=== PATIENT | male | born 1955 | race Caucasian/White ===

== ENCOUNTER 2017-08-10 14:21 | Emergency (ER) | payer MEDICAID | END 2017-08-10 14:45 | disposition left against medical advice (07) | LOC: ER 14:21 | DX: Z53.20 Procedure and treatment not carried out because of patient's decision for unspecified reasons (principal) ==

== ENCOUNTER 2017-08-10 14:22 | Emergency (ER) | payer MEDICAID ==
[2017-08-10] MEDS ORDERED: MORPHINE SULFATE 5 MG/ML PFS IVP ONE ×2 (14:25→16:35)
[2017-08-10] MEDS ORDERED: ONDANSETRON HCL IV 4 MG/2 ML VIAL IVP ONE (14:25)
[2017-08-10] MEDS ORDERED: 0.9 % SODIUM CHLORIDE 1,000 ML BAG IV ONE (14:25)
--- NOTE | 2017-08-10 14:31 | Emergency Department Record ---
History of Present Illness - General Chief complaint: Flank Pain Stated complaint: RIGHT FLANK PAIN Time Seen by Provider: 08/10/17 14:25 Source: Patient, Family Mode of Arrival: Ambulatory Limitations: No limitations - History of Present Illness Initial comments: 62 yo male presents with right sided pain that has been on and off for several days. The pain is sharp. No injury. No changes in urination, bowel movements , or appetite. He denies any trauma. The pain initially would come and go but today it is constant. No rash. No fevers. No history of renal stones. No history of hip surgery. He does have arthritis. Non smoker. His PCP is Dr Lemus. The pain is worse with certain positions. No leg radiation but it does radiate from the back around to the front near the hip area. MD Complaint: Other (Right flank pain) -: Days(s) Location: Right flank Radiation: Other (right hip) Quality: Aching Consistency: Constant Improves with: Rest Worsens with: Movement Reports: Denies other symptoms - Related Data Previous Rx's Medication Instructions Recorded Diazepam [Valium] 5 mg PO Q8H #15 tab 08/10/17 Hydrocodone/Acetaminophen [Anderson 1 each PO Q6H #16 tablet 08/10/17 5-325 Tablet] Methylprednisolone [Medrol Dose 0 mg PO UD #1 tab.ds.pk 08/10/17 Pack] Allergies Allergy/AdvReac Type Severity Reaction Status Date / Time Sulfa (Sulfonamide Allergy Unverified 08/10/17 14:00 Antibiotics) adhesive tape AdvReac RASH Unverified 08/10/17 14:00 Review of Systems Constitutional: Denies: Chills, Fever, Malaise, Weakness Eyes: Denies: Eye discharge ENT: Denies: Congestion, Throat pain Respiratory: Denies: Cough, Dyspnea, Hemoptysis, Stridor, Wheezes Cardiovascular: Denies: Chest pain, Palpitations, Syncope Endocrine: Denies: Fatigue Gastrointestinal: Reports: Abdominal pain. Denies: Diarrhea, Nausea, Vomiting Genitourinary: Denies: Dysuria, Frequency, Hematuria, Testicular pain Musculoskeletal: Reports: Back pain. Denies: Arthralgia Skin: Denies: Bruising, Change in color, Rash Neurological: Denies: Headache, Numbness, Weakness Psychiatric: Denies: Anxiety Hematological/Lymphatic: Denies: Easy bleeding, Easy bruising Physical Exam - General General Appearance: Alert, Oriented x3, Cooperative, No acute distress Limitations: No limitations - Head Head exam: Normal inspection - Eye Eye exam: Normal appearance. negative: Scleral icterus - ENT ENT exam: Normal exam, Mucous membranes moist, Normal orophraynx Ear exam: Normal external inspection Nasal Exam: Normal inspection Mouth exam: Normal external inspection Teeth exam: Normal inspection Throat exam: Normal inspection - Neck Neck exam: Normal inspection, Full ROM. negative: Tenderness - Respiratory Respiratory exam: Normal lung sounds bilaterally. negative: Respiratory distress - Cardiovascular Cardiovascular Exam: Regular rate, Normal rhythm, Normal heart sounds - GI/Abdominal GI/Abdominal exam: Soft. negative: Distended, Guarding, Rebound, Rigid, Tenderness - Rectal Rectal exam: Deferred - exam: Deferred - Extremities Extremities exam: Normal inspection, Full ROM, Normal capillary refill, Other ( Right hip has full ROM without hip pain, he does have some right flank pain with palpation). negative: Calf tenderness, Pedal edema, Tenderness - Back Back exam: Reports: Normal inspection, CVA tenderness (R), Paraspinal tenderness - Neurological Neurological exam: Alert, Oriented X3, Reflexes normal - Psychiatric Psychiatric exam: Normal affect, Normal mood - Skin Skin exam: Dry, Intact, Normal color, Warm Course - Reevaluation(s) Reevaluation #1: 08/10/17 15:10 The CBC was reviewed No acute changes The CMP was reviewed. CR is 1.3. GFR is 58 08/10/17 15:10 The patient is much improved after the pain medication 08/10/17 15:37 On recheck the pain is greatly improved. He is very comfortable. Declined additionally pain medication at this time. 08/10/17 15:39 The UA was reviewed and was negative The CT scan is negative for acute process. No stones 08/10/17 16:36 08/10/17 17:22 The pain is well controlled at this time With his negative work up and examination at this time this is likely musculo skeletal We discussed the results including labs, UA and CT We discussed home care and follow up if the pain returns I SW Dr Lemus regarding the ED visit. The patient can follow up in the office for a recheck if not improving 08/10/17 18:05 Medical Decision Making - Lab Data Result diagrams: 08/10/17 14:30 08/10/17 14:30 Disposition Disposition: Discharge Clinical Impression: Right low back pain Qualifiers: Chronicity: acute Sciatica presence: without sciatica Qualified Code(s): M54.5 - Low back pain Disposition: Home, Self-Care Condition: (1) Good Instructions: Flank Pain (ED) Additional Instructions: Call your doctor for close follow up of this ER visit to review the test results. Return if you pain is uncontrolled, news symptoms or concerns. Prescriptions: Diazepam [Valium] 5 mg PO Q8H #15 tab Hydrocodone/Acetaminophen [Anderson 5-325 Tablet] 1 each PO Q6H #16 tablet Methylprednisolone [Medrol Dose Pack] 0 mg PO UD #1 tab.ds.pk Forms: Patient Portal Access Quality - Quality Measures Quality Measures: N/A - Blood Pressure Screening Does Patient Have Any of the Following: Active Dx of HTN Blood Pressure Classification: Pre-Hypertensive BP Reading Systolic Measurement: 122 Diastolic Measurement: 72 Screening for High Blood Pressure: Patient Exclusion, Hx of HTN [G9744] Pre-Hypertensive Follow-up Interventions: Referral to alternative/primary care provider.
[2017-08-10 14:38] LABS: BASO % 1.1 % (0-6); GRAN % 66.1 % (47-80); HEMATOCRIT 45.2 % (42.0-52.0); LYMPH % 19.4 % (16-45); MEAN CELL VOLUME 85.8 fl (81-97); MEAN CORPUSCULAR HEMOGLOBIN 28.5 pg (27-33); MEAN CORPUSCULAR HGB CONC 33.2 g/dl (32-36); MEAN PLATELET VOLUME 9.7 fl (7.4-10.4); MONO % 9.4 % (0-9); PLATELET COUNT 317 K/uL (130-400); RED BLOOD COUNT 5.27 M/uL (4.40-5.70); RED CELL DISTRIBUTION WIDTH 14.1 % (11.5-14.5); WHITE BLOOD COUNT W/O DIFF 4.7 K/uL (4.2-12.2)
[2017-08-10 14:48] LABS: BILIRUBIN,TOTAL 0.4 mg/dL (0.2-1.0); CREATININE 1.3 mg/dL (0.7-1.2)
[2017-08-10 14:49] LABS: TOTAL PROTEIN 7.4 g/dL (6.6-8.7)
[2017-08-10 14:54] LABS: ALB/GLOB RATIO 1.7 (1.1-1.8); ALBUMIN 4.7 g/dL (4.0-5.0)
[2017-08-10 15:20] LABS: URINE APPEARANCE CLEAR; URINE BILIRUBIN NEGATIVE (NEGATIVE); URINE BLOOD NEGATIVE (NEGATIVE); URINE COLOR YELLOW; URINE GLUCOSE (UA) NEGATIVE (NEGATIVE); URINE KETONE NEGATIVE (NEGATIVE); URINE LEUKOCYTE ESTERASE NEGATIVE (NEGATIVE); URINE NITRITE NEGATIVE (NEGATIVE); URINE PROTEIN NEGATIVE (NEGATIVE); URINE UROBILINOGEN 0.2 E.U./dL (0.20 - 1.00)
[2017-08-10] MEDS ORDERED: ACETAMINOPHEN 1,000 MG/100 ML BTL IVPB ONE (16:35)
[2017-08-10] MEDS ORDERED: DEXAMETHASONE SOD PHOSPHATE 10MG/ML VIAL PO ONE (16:35)
--- NOTE | 2017-08-11 14:18 | CT SCAN REPORT ---
EXAM: EMERGENCY CT OF THE ABDOMEN AND PELVIS HISTORY: RIGHT FLANK TO HIP PAIN. TECHNIQUE: Axial CT scan of the abdomen and pelvis was performed without oral or IV contrast. Comparison: None. FINDINGS: No calcified gallstones are seen within the gallbladder. No intrarenal calculi identified on either side. No hydronephrosis or hydroureter is seen. No definite ureteral calculus seen on either side and no bladder calculus evident. The prostate is mildly enlarged measuring about 5.1 cm in transverse x 4.9 cm in AP diameter and contains a small amount of calcification. Correlation with physical exam and serum PSA is suggested. There is a 1.9 cm exophytic low attenuation mass arising anteriorly from the upper pole of the right kidney. This was incompletely evaluated without IV contrast although has a CT density of 10 and is presumably a small cyst. There is probably a second even smaller low attenuation mass about 9 mm in size within the parenchyma of the left kidney medially with a CT density of 9, also presumably a small cyst. These could be confirmed as such with a follow-up renal MRI if not previously documented and felt clinically warranted with no contraindication. Evaluation of the bowel and viscera is very limited without oral or IV contrast. Given this limitation, no definite hepatic, splenic, adrenal, pancreatic, or left renal mass identified. Minor diverticulosis left side of the colon, but no diverticulitis evident. The appendix is not well seen, but no appendicitis evident. No free intraperitoneal air or free intraperitoneal fluid evident. Narrowing of the lumbosacral interspace. Prominent spurring in the lower thoracic spine. Bony bridging along the anterior aspect of the right sacroiliac joint. IMPRESSION: 1. NO DEFINITE URINARY TRACT CALCULI OR HYDRONEPHROSIS IDENTIFIED. 2. MINOR DIVERTICULOSIS LEFT SIDE OF THE COLON, BUT NO DIVERTICULITIS EVIDENT. 3. THE APPENDIX IS NOT IDENTIFIED AND MAY BE SURGICALLY ABSENT. NO FREE AIR OR FREE FLUID EVIDENT. 4. ENLARGED PROSTATE. 5. SOME CHRONIC SKELETAL FINDINGS NOTED ABOVE. JOB NUMBER: [id number] [facility]
== END 2017-08-10 17:40 | disposition home or self-care (01) ==
LOC: ER 14:22
DX: M54.5 Low back pain (principal); I10 Essential (primary) hypertension
CPT/HCPCS: 99284 ×2; 96376; 96374; 96375; 85025; 80053; 81003; 74176; J2405; J2270; J1100; J7030

== ENCOUNTER 2018-06-01 14:57 | Emergency (ER) | payer MEDICAID ==
--- NOTE | 2018-06-01 15:44 | Emergency Department Record ---
History of Present Illness - General Chief Complaint: Hypertension Stated Complaint: RT ARM TINGLING,BLOOD PRESSURE ISSUES Time Seen by Provider: 06/01/18 15:36 Source: Patient, RN notes reviewed Mode of Arrival: Wheelchair - History of Present Illness Initial Comments: patient had right arm pain and numbness in the hand and it aches up to the mid arm area. He has swollen hands and this started yesterday and is here with him and he is using motrin for his arm pain three every 8 hours the motrin helps his pain. Retired . No heart problems and hypertension for 10 years. His arm pain is located in the right wrist and swelling of fingers minor and he had bilateral carpal tunnel surgery years ago. Onset/Timin -: Week(s) Timing: Gradual onset History of Same: No History of Trauma: Yes (Fall 2017) Worsens With: Nothing Associated Symptoms: Weakness - [place] Coma Scale Eye Response: (4) Open spontaneously Motor Response: (6) Obeys commands Verbal Response: (5) Oriented [place] Total: 15 - Symptoms of Stroke Onset of Symptoms Date: 05/18/18 Symptom Onset Unknown: No Symptoms of stroke: Muscle Weakness, Numbness - Related Data Previous Rx's Medication Instructions Recorded Naproxen [Naprosyn] 500 mg PO BID #20 tablet 06/01/18 Allergies Allergy/AdvReac Type Severity Reaction Status Date / Time Sulfa (Sulfonamide Allergy PT UNSURE Verified 06/01/18 15:07 Antibiotics) OF REACTION adhesive tape AdvReac RASH Verified 06/01/18 15:07 Travel Screening - Travel/Exposure Within Last 30 Days Have you traveled within the last 30 days?: No - Travel/Exposure Within Last Year Have you traveled outside the [place] in the last year?: No - Additonal Travel Details Have you been exposed to anyone with a communicable illness?: No - Travel Symptoms Symptom Screening: None Review of Systems Reviewed: No additional complaints except as noted below Constitutional: Reports: As per HPI. Denies: Chills, Fever, Malaise, Night sweats, Weakness, Weight change Eyes: Reports: As per HPI. Denies: Eye discharge, Eye pain, Photophobia, Vision change ENT: Reports: As per HPI. Denies: Congestion, Dental pain, Ear pain, Epistaxis , Hearing loss, Throat pain Respiratory: Reports: As per HPI. Denies: Cough, Dyspnea, Hemoptysis, Stridor, Wheezes Cardiovascular: Reports: As per HPI. Denies: Arrhythmia, Chest pain, Dyspnea on exertion, Edema, Murmurs, Orthopnea, Palpitations, Paroxysmal nocturnal dyspnea, Rheumatic Fever, Syncope Endocrine: Reports: As per HPI. Denies: Fatigue, Heat or cold intolerance, Polydipsia, Polyuria Gastrointestinal: Reports: As per HPI. Denies: Abdominal pain, Constipation, Diarrhea, Hematemesis, Hematochezia, Melena, Nausea, Vomiting Genitourinary: Reports: As per HPI. Denies: Dysuria, Frequency, Hematuria, Incontinence, Retention, Testicular pain, Testicular mass, Urgency Musculoskeletal: Reports: As per HPI. Denies: Arthralgia, Back pain, Gout, Joint swelling, Myalgia, Neck pain Skin: Reports: As per HPI. Denies: Bruising, Change in color, Change in hair/ nails, Lesions, Pruritus, Rash Neurological: Reports: As per HPI. Denies: Abnormal gait, Confusion, Headache, Numbness, Paresthesias, Seizure, Tingling, Tremors, Vertigo, Weakness Psychiatric: Reports: As per HPI. Denies: Anxiety, Auditory hallucinations, Depression, Homicidal thoughts, Suicidal thoughts, Visual hallucinations Hematological/Lymphatic: Reports: As per HPI. Denies: Anemia, Blood Clots, Easy bleeding, Easy bruising, Swollen glands Past Medical History - SOCIAL HISTORY Smoking Status: Never smoker Alcohol Use: Rare Drug Use: None - RESPIRATORY Hx Respiratory Disorders: No - CARDIOVASCULAR Hx Cardio Disorders: Yes Hx Hypertension: Yes Comment:: cholesterol - NEURO Hx Neuro Disorders: No - GI Hx GI Disorders: Yes Comment:: gastritis hx-Gaviscon PRN - Hx Genitourinary Disorders: No - ENDOCRINE Hx Endocrine Disorders: No - MUSCULOSKELETAL Hx Musculoskeletal Disorders: No - PSYCH Hx Psych Problems: No - HEMATOLOGY/ONCOLOGY Hx Hematology/Oncology Disorders: No Family Medical History Any Significant Family History?: No Physical Exam - General General Appearance: Alert, Oriented x3, Cooperative, No acute distress - Head Head exam: Normal inspection - Eye Eye exam: Normal appearance, PERRL Pupils: Normal accommodation - ENT ENT exam: Normal exam, Mucous membranes moist, Normal external ear exam, Normal orophraynx, TM's normal bilaterally Ear exam: Normal external inspection. negative: External canal tenderness Nasal Exam: Normal inspection. negative: Discharge, Sinus tenderness Mouth exam: Normal external inspection, Tongue normal Teeth exam: Normal inspection. negative: Dental caries Throat exam: Normal inspection. negative: Tonsillar erythema, Tonsillar exudate - Neck Neck exam: Normal inspection, Full ROM. negative: Tenderness - Respiratory Respiratory exam: Normal lung sounds bilaterally. negative: Respiratory distress - Cardiovascular Cardiovascular Exam: Regular rate, Normal rhythm, Normal heart sounds - GI/Abdominal GI/Abdominal exam: Soft, Normal bowel sounds. negative: Tenderness - Rectal Rectal exam: Deferred - exam: Deferred - Extremities Extremities exam: Normal inspection, Full ROM, Normal capillary refill. negative: Tenderness - Back Back exam: Reports: Normal inspection, Full ROM. Denies: Muscle spasm, Rash noted, Tenderness - Neurological Neurological exam: Alert, Normal gait, Oriented X3, Reflexes normal - Psychiatric Psychiatric exam: Normal affect, Normal mood - Skin Skin exam: Dry, Intact, Normal color, Warm Course Vital Signs 06/01/18 06/01/18 14:59 15:11 Temperature 98.3 F Pulse Rate 89 Respiratory 16 Rate Blood Pressure 166/102 Blood Pressure 168/100 [Right Arm] Pulse Ox 96 - Reevaluation(s) Reevaluation #1: told patient and exercise stress test would be beneficial to check his heart in exercise and that can be scheduled outpatient through his Dr. 06/01/18 17:15 Medical Decision Making - Data Complexity MDM Data: Labs Ordered and/or Reviewed, EKG Ordered and/or Reviewed (No acute changes) - Lab Data Result diagrams: 06/01/18 15:15 06/01/18 15:15 Disposition Clinical Impression: Tendonitis of wrist, right Hypertension Qualifiers: Hypertension type: essential hypertension Qualified Code(s): I10 - Essential ( primary) hypertension Disposition: Home, Self-Care Condition: (1) Good Instructions: Hypertension (ED), Tendinitis (ED) Additional Instructions: follow up with Dr Lemus to check his BP in 2-7 days take two BP pills in the AM to bring his BP down and he will need to have follow up on his BP naprosyn twice a day for his wrist tendonitis Prescriptions: Naproxen [Naprosyn] 500 mg PO BID #20 tablet Forms: Patient Portal Access Time of Disposition: 17:17 Quality - Quality Measures Quality Measures: N/A - Blood Pressure Screening Does Patient Have Any of the Following: No, Active Dx of HTN Blood Pressure Classification: Hypertensive Reading Systolic Measurement: 166 Diastolic Measurement: 102 Screening for High Blood Pressure: Patient Exclusion, Hx of HTN [G9744]
[2018-06-01] MEDS ORDERED: ASPIRIN 81 MG CHEWABLE TABLET PO ONE (15:47)
[2018-06-01] MEDS ORDERED: CLONIDINE HCL 0.1 MG TABLET PO ONE (15:57)
[2018-06-01 16:04] LABS: BASO % 1.5 % (0-6); GRAN % 61.7 % (47-80); HEMATOCRIT 43.5 % (42.0-52.0); HEMOGLOBIN 14.6 gm/dl (14.0-18.0); LYMPH % 18.8 % (16-45); MEAN CELL VOLUME 85.6 fl (81-97); MEAN CORPUSCULAR HEMOGLOBIN 28.7 pg (27-33); MEAN CORPUSCULAR HGB CONC 33.6 g/dl (32-36); MEAN PLATELET VOLUME 10.1 fl (7.4-10.4); PLATELET COUNT 253 K/uL (130-400); RED BLOOD COUNT 5.08 M/uL (4.40-5.70); RED CELL DISTRIBUTION WIDTH 14.6 % (11.5-14.5); WHITE BLOOD COUNT W/O DIFF 4.7 K/uL (4.2-12.2)
[2018-06-01 16:05] LABS: URINE APPEARANCE CLEAR; URINE BILIRUBIN NEGATIVE (NEGATIVE); URINE BLOOD NEGATIVE (NEGATIVE); URINE COLOR YELLOW; URINE GLUCOSE (UA) NEGATIVE (NEGATIVE); URINE KETONE NEGATIVE (NEGATIVE); URINE LEUKOCYTE ESTERASE NEGATIVE (NEGATIVE); URINE NITRITE NEGATIVE (NEGATIVE); URINE PROTEIN NEGATIVE (NEGATIVE); URINE UROBILINOGEN 0.2 E.U./dL (0.20 - 1.00)
[2018-06-01 16:17] LABS: BLOOD UREA NITROGEN 20 mg/dL (8-23); CREATININE 1.3 mg/dL (0.7-1.2); EST GLOMERULAR FILTRATION RATE 59 mL/min
[2018-06-01 16:20] LABS: GLUCOSE,RANDOM 83 mg/dL (74-109)
[2018-06-01] MEDS ORDERED: PREDNISONE 20 MG TAB PO ONE (16:36)
== END 2018-06-01 17:28 | disposition home or self-care (01) ==
LOC: ER 14:57
DX: M65.841 Other synovitis and tenosynovitis, right hand (principal); I10 Essential (primary) hypertension; M62.81 Muscle weakness (generalized)
CPT/HCPCS: 80048; 81003; 84484; 85025; 85730; 93005; 93010; 99284; J7512